=== PATIENT | female | born 1985 | race Two or more races ===

== ENCOUNTER 2022-04-07 05:30 | Day surgery (SDC) | payer OTHER | END 2022-04-07 14:55 | disposition home or self-care (01) | LOC: CIR.AMB 05:30 | PROVIDERS: ATTEND Surgery | DX: K82.8 Other specified diseases of gallbladder (principal); K81.1 Chronic cholecystitis; K21.9 Gastro-esophageal reflux disease without esophagitis; K44.9 Diaphragmatic hernia without obstruction or gangrene; Z20.822 Contact with and (suspected) exposure to COVID-19; Z86.16 Personal history of COVID-19 ==